=== PATIENT | male | born 1985 | race Caucasian/White ===

== ENCOUNTER 2017-12-20 19:08 | Emergency (ER) | payer SELFPAY ==
[2017-12-20] MEDS ORDERED: TETANUS/DIPHTHERIA TOXOID [ADULT] 0.5 ML VIAL IM ONE (19:46)
== END 2017-12-20 21:17 | disposition home or self-care (01) ==
LOC: EDH 19:08
DX: S61.411A Laceration without foreign body of right hand, initial encounter (principal); W23.0XXA Caught, crushed, jammed, or pinched between moving objects, initial encounter; Y93.89 Activity, other specified; Y92.89 Other specified places as the place of occurrence of the external cause; Y99.8 Other external cause status
CPT/HCPCS: 12002; 73130; 90714